=== PATIENT | female | born 1990 | race Caucasian/White ===

== ENCOUNTER 2017-05-28 14:28 | Emergency (ER) | payer MEDICAID ==
[2017-05-28 14:57] VITALS: BP 125/77; PULSE 97; RESP 18; TEMP 97.8; O2SAT 99
--- NOTE | 2017-05-28 16:11 | C.PDOC ---
History Of Present Illness 27 y/o F p/w R sided lower back pain radiating down R leg x 1 week. Denies injury, fever, urinary or bowel changes, numbness, or weakness. Has not taken any medication for pain. Time Seen by Provider: 05/28/17 15:41 Chief Complaint (Nursing): Back Pain Past Medical History Vital Signs: Last Vital Signs Temp 97.8 F 05/28/17 14:55 Pulse 97 H 05/28/17 14:55 Resp 18 05/28/17 14:55 BP 125/77 05/28/17 14:55 Pulse Ox 99 05/28/17 18:22 - Medical History PMH: Hypothyroidism Surgical History: Tonsillectomy Family History: States: No Known Family Hx - Social History Hx Alcohol Use: No Hx Substance Use: No - Immunization History Hx Tetanus Toxoid Vaccination: No Hx Influenza Vaccination: No Hx Pneumococcal Vaccination: No Review Of Systems Except As Marked, All Systems Reviewed And Found Negative. Constitutional: Negative for: Fever Respiratory: Negative for: Shortness of Breath Physical Exam - Physical Exam Appears: No Acute Distress Skin: Normal Color Head: Normacephalic Neck: No Midline Cervical Tenderness, Supple Cardiovascular: Rhythm Regular Respiratory: Normal Breath Sounds Gastrointestinal/Abdominal: Soft, No Tenderness Back: No Vertebral Tenderness, Straight Leg Raising (R) Extremity: No Tenderness, No Swelling Pulses: Left Radial: Normal, Right Radial: Normal Neurological/Psych: Normal Speech, Normal Cognition Gait: Steady ED Course And Treatment O2 Sat by Pulse Oximetry: 99 Medical Decision Making Medical Decision Making: Symptoms and examination consistent with sciatica. Treat conservatively, instructed to f/u with PMD, instructed to obtain imaging for pain persisting beyond 3 weeks. Instructed to return to ED for worsening pain, fever, numbness, weakness, urinary or bowel changes. Disposition - Disposition Referrals: Shaik Garcia MD [Staff Provider] - Disposition: HOME/ ROUTINE Disposition Time: 16:11 Condition: STABLE Prescriptions: Cyclobenzaprine [Cyclobenzaprine HCl] 1 tab PO Q8H #12 tab Instructions: Sciatica (ED) Forms: [employer] (Frisian) - Clinical Impression Clinical Impression: Low back pain
== END 2017-05-28 16:23 | disposition home or self-care (01) ==
LOC: C.ER 14:28
DX: M54.5 Low back pain (principal); E03.9 Hypothyroidism, unspecified
CPT/HCPCS: 96372; 99284; J1885

== ENCOUNTER 2018-05-02 19:00 | Inpatient (IN) | payer OTHER ==
[2018-05-02 19:57] VITALS: BMI 46.5
[2018-05-02 20:53] LABS: BASO % 0.2 % (0.0-2.0); EOS # 0.1 K/uL (0.0-0.7); EOS % 0.4 % (0.0-4.0); HEMOGLOBIN 11.4 g/dL (11.0-16.0); LYMPH # 1.3 K/uL (1.0-4.3); LYMPH % 11.6 % (20.0-40.0); MEAN CORPUSCULAR HEMOGLOBIN 30.1 pg (27.0-31.0); MEAN CORPUSCULAR HGB CONC 34.2 g/dL (33.0-37.0); MEAN PLATELET VOLUME 10.2 fL (7.2-11.7); MONO # 0.6 K/uL (0.0-0.8); MONO % 5.4 % (0.0-10.0); NEUT # 9.3 K/uL (1.8-7.0); NEUT % 82.4 % (50.0-75.0); RBC 3.79 Mil/uL (3.80-5.20); RED CELL DISTRIBUTION WIDTH 13.8 % (11.5-14.5); WHITE BLOOD COUNT 11.3 K/uL (4.8-10.8)
[2018-05-02 21:07] LABS: ALB/GLOB RATIO 1.1 (1.0-2.1); ALBUMIN 3.2 g/dL (3.5-5.0); ALT/SGPT 24 U/L (9-52); AST/SGOT 26 U/L (14-36); BLOOD UREA NITROGEN 11 mg/dL (7-17); CALCIUM 8.9 mg/dl (8.6-10.4); GFR NON-AFRICAN AMERICAN > 60; URIC ACID 5.3 mg/dL (2.2-7.5)
[2018-05-02 21:09] LABS: SQUAMOUS EPITHIAL 2 /hpf (0-5); URINE BILIRUBIN NEGATIVE (NEGATIVE); URINE BLOOD 2+ (NEGATIVE); URINE CLARITY Clear (Clear); URINE COLOR Yellow (YELLOW); URINE GLUCOSE (UA) NORMAL (Normal); URINE LEUKOCYTE ESTERASE 1+ Leu/uL (Negative); URINE PROTEIN NEGATIVE (NEGATIVE); URINE UROBILINOGEN NORMAL mg/dL (0.2-1.0)
[2018-05-02 21:13] LABS: INR 0.9; PROTHROMBIN TIME 10.2 SECONDS (9.7-12.2)
[2018-05-02] MEDS: Lactated Ringer's 1,000 ML IV SCH (22:53)
--- NOTE | 2018-05-02 23:51 | OBHP ---
Datetime: 05/02/2018 20:54 IP Adm Impression: Term, intrauterine ; No Active Labor; Intact Membranes IP Admit Plan: Admit to unit IP Admit Plan Other: Cervical ripening Admit Comment, IP Provider: Thisis a private patient of Dr. Varghese Machado Patient seen and evaluated at 2007 hours 28 y.o. , LMP unsure, JORDYN 05/11/18, EGA 38w 5d confirmed by sono 02/24/18 at 29w 1d, referred by PMD for evauation of elevated BP - R/O pre-eclampsia. Per patient BP in ofice 140/100, repeat 138/ 88. In Ob-ED, BP 130/83, 132/91, 126/80, 137/82, 133/86, 130/85. Patient denies HAs, BV, spots, RUQ or epigastric pain. Also denies nausea/vomiting. (+) AFM; denies LOF, VB; (+) occ B-H Ctx x 1 weeks. care: Dr. 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 Denies h/o STIs, abnormal Pap, myomata PMH: Hypothyroid - age 8. PSH: Tonsillectomy - age 8 NKDA Meds: PNV - QD. Levothyroxine 100 mg po QAM; Vit d - once weekely Soc Hx: denies tobacco, illicit drug or EtOH use. Lives with FOB; together x 2 years. Unemployed Fam Hx: Mother alive 57 y.o. no med issues. Father when patient young child - end stage r enal disease. No known fam H/Ocancer P.E.: as above. Mildly obese in NAD. Awake, alert, oriented to time, person and place. Pleasant an d cooperative. Accompanied by FOB Assessment: 28 y.o. P0, 38w 5d, elevated BP and hypothyroid. R/O pre-eclampsia. Category 1 tracin g. Clinically stable. Plan: 1) Pre-eclampsia labs 2) serial BPs 3) Observe - as per, and D/W, Dr. Machado Addendum: [address] Machado: cerivx 2cm dilated. In light of cervical change and uterine contra citons, decision made to admit for delivery. BP range 130s/80s Assessment; 28 y.o. P0, 38w 5d, gestational HTN, hypothyroid making cervical change. Admit for del poli; cervical ripening. Category 1 tracing. Clinically stable. Plan: 1) Admit 2) NPO 3) Complete admission labs. 4) Cervidil 5) Antiicpate vaginal delivery- as per Dr. Machado Addenedum: 2220 hours - cervidil placed in postrior vaginal vault by me: cervix 2 cm/50%/-3. Patient reports back pain, left-sided body pain; Denes abdominal pain/Ctx. (+) AFM; denies HAs, BV , epigastric or RUQ pain Pelvic Type - PN: Adequate Extremities - PN: Normal Abdomen - PN: Normal Back - PN: Normal Breast - PN: Not Done Lungs - PN: Normal Heart - PN: Normal Thyroid - PN: Not Done HEENT - PN: Normal General - PN: Normal Presentation-Admit: Vertex FHR - Baseline A Provider: 140 Contraction Comments Provider: irritability Comments, ACOG Physical Exam: Skin: (+) vitiligo on mons/ perineum Abdomen: Obese. Gravid. Soft. Non tender in all quadrants. Fundal height 38cm Extremities: no calf tenderness; 1+ pedal edema bilaterally All other systems reviewed and are negative Gestation - Est Wks by US: 38w 5d EGA AdmitDate IP: 38.5 Vital Signs Provider: Reviewed IP Indication for Induction: Gest. HTN/PreEclampsia/Eclampsia IP Chief Complaint: Signs/Symptoms Gestational HTN NICHD Variability Prov Fetus A: Moderate 6-25bpm NICHD Accel Fetus A IP Provider: 15X15 FHR Category Provider Fetus A: Category I NICHD Decel Fetus A IP Provider: None Dilatation, Provider: FT Effacement, Provider: long Station, Provider: -3 DTRs - PN: Normal
--- NOTE | 2018-05-03 07:29 | OBADHP ---
Datetime: 05/03/2018 07:26 FHR - Baseline A Provider: 130 Contraction Comments Provider: irrg Vital Signs Provider: Reviewed; Within Normal Limits NICHD Variability Prov Fetus A: Moderate 6-25bpm NICHD Accel Fetus A IP Provider: 15X15 FHR Category Provider Fetus A: Category I Dilatation, Provider: 3 Effacement, Provider: 70 Station, Provider: -2 Datetime: 05/02/2018 20:54 IP Hx Assessment: The History has been Reviewed and is Current EGA AdmitDate IP: 38.5
--- NOTE | 2018-05-03 07:31 | OBPN ---
Datetime: 05/03/2018 07:26 IP Progress Impression: Normal progression of labor IP Procedures: Artificial ROM; Sterile Vag Exam Contraction Comments Provider: irrg FHR - Baseline A Provider: 130 IP Progress Note Comment: pt was examined at bed side ve /-2 arom clear start pitocin anticipate nsbvd Vital Signs Provider: Reviewed; Within Normal Limits NICHD Accel Fetus A IP Provider: 15X15 FHR Category Provider Fetus A: Category I NICHD Variability Prov Fetus A: Moderate 6-25bpm Dilatation, Provider: 3 Effacement, Provider: 70 Station, Provider: -2 Datetime: 05/02/2018 20:54 Gestation - Est Wks by US: 38w 5d Presentation-Admit: Vertex NICHD Decel Fetus A IP Provider: None
[2018-05-03] MEDS ORDERED: Oxytocin 30 UNIT 30 UNITS/500 ML BAG IV ONE ×2 (07:35→07:40)
[2018-05-03] MEDS: Lactated Ringer's 1,000 ML IV SCH ×2 (10:01→21:04)
[2018-05-03] MEDS ORDERED: Bupivacaine HCl/FentaNYL Cit 100 ML EPI ONE (12:49)
--- NOTE | 2018-05-03 14:12 | OBPN ---
Datetime: 05/03/2018 14:08 IP Progress Impression: Normal progression of labor IP Procedures: Sterile Vag Exam IP Progress Plan: Continue present management FHR - Baseline A Provider: 130 IP Progress Note Comment: pt was examined at bed side ve 80/-1 cont pitocin' [id number] Vital Signs Provider: Reviewed; Within Normal Limits NICHD Accel Fetus A IP Provider: 15X15 FHR Category Provider Fetus A: Category I NICHD Variability Prov Fetus A: Moderate 6-25bpm Dilatation, Provider: 4 Effacement, Provider: 80 Station, Provider: -1
--- NOTE | 2018-05-03 15:35 | OBPN ---
Datetime: 05/03/2018 15:32 IP Progress Impression: Normal progression of labor IP Procedures: Sterile Vag Exam Contraction Comments Provider: q1- FHR - Baseline A Provider: 130 IP Progress Note Comment: pt was exained at bed side ve 6/100/-1 cont p[itocin aticiupate Vital Signs Provider: Reviewed; Within Normal Limits NICHD Accel Fetus A IP Provider: 15X15 FHR Category Provider Fetus A: Category I NICHD Variability Prov Fetus A: Moderate 6-25bpm Dilatation, Provider: 6 Effacement, Provider: 100 Station, Provider: -1
[2018-05-03] MEDS ORDERED: Sodium Citrate/Citric Acid 15 ml Sol ONE (17:23)
[2018-05-03] MEDS ORDERED: cefOXitin IV 2 gm in Saline 2 GM/50 ML BAG IVPB ONE (17:24)
[2018-05-03] MEDS ORDERED: cefOXitin IV 2 gm in Dextrose 2 GM/50 ML BAG IVPB ONE (17:25)
[2018-05-03] MEDS ORDERED: Sodium Citrate/Citric Acid 15 ml Sol PO ONE (17:25)
[2018-05-03] MEDS ORDERED: Oxytocin 10 Units/ml Inj ONE ×2 (17:25→17:50)
[2018-05-03] MEDS ORDERED: Lactated Ringer's 1,000 ML IV ONE (17:25)
--- NOTE | 2018-05-03 17:25 | OBPN ---
Datetime: 05/03/2018 17:21 IP Informed Consent Obtain: Section Delivery; Risks, Benefits and Alternatives Discussed IP Procedures: Sterile Vag Exam Contraction Comments Provider: q1-4 FHR - Baseline A Provider: 130 IP Progress Note Comment: pt was examinred at [facility] ve /-1, unchnged mod amt of blod plan primary c/s called stat informed consent r/a/ pt unde and agrees NICHD Variability Prov Fetus A: Moderate 6-25bpm Dilatation, Provider: 6 Effacement, Provider: 100 Station, Provider: -1
[2018-05-03] MEDS ORDERED: Oxytocin 20 units in LR 2,000 ML IV ONE (17:27)
[2018-05-03] MEDS ORDERED: Sodium Bicarbonate (8.4%) 50 Meq Syringe ONE (17:27)
[2018-05-03] MEDS ORDERED: Propofol 10 mg/ml Inj (20 ML) ONE (17:31)
[2018-05-03] MEDS ORDERED: Ketamine 50 mg/ml Inj (10 ml) ONE (17:31)
[2018-05-03] MEDS ORDERED: Morphine 1 mg/ml preservative-free Inj(Duramorph) ONE (17:53)
--- NOTE | 2018-05-03 18:12 | OBDS ---
DELIVERY PERSONNEL Delivery Doctor: Varghese Machado MD Passenger Barge Master: Kelvin Del Angel RN Anesthesiologist: jarret MATERNAL INFORMATION Delivery Anesthesia: Spinal Medications in Delivery: pitocin 40 Maternal Complications: Other Other Maternal Complications: vaginal bleeding Provider Comments: dr machado privare baby eloivrd n dop postion. placente seorated. 9/9 no com LABOR SUMMARY EDC: 05/11/2018 00:00 No. Babies in Womb: 1 LABOR INFORMATION Cervical Ripening Agents: Cervidil in place. Group B Beta Strep: negative as per Dr. Machado MEMBRANES Membranes Rupture Method: Artificial Rupture of Membranes: 05/03/2018 07:21 Length of Rupture (hrs): 10.40 Amniotic Fluid Color: Clear Amniotic Fluid Amount: Moderate Amniotic Fluid Odor: Normal STAGES OF LABOR Stage 3 hrs: 0 Stage 3 min: 1 BABY A INFORMATION Infant Delivery Date/Time: 05/03/2018 17:45 Method of Delivery: Born in Route : No : N/A Forceps: N/A Vacuum Extraction: N/A Shoulder Dystocia : No SHOULDER DYSTOCIA BABY A Infant Delivery Date/Time: 05/03/2018 17:45 PRESENTATION/POSITION BABY A Presentation: Cephalic Cephalic Presentation: Vertex Breech Presentation: N/A PLACENTA INFORMATION BABY A Placenta Delivery Time : 05/03/2018 17:46 Placenta Method of Delivery: Expressed Placenta Status: Retained SCORES BABY A Heart Rate 1 min: >100 bpm Resp Effort 1 min: Good Cry Reflex Irritability 1 min: Cough or Sneeze or Pulls Away Muscle Tone 1 min: Active Motion Color 1 min: Body Champ, Extremities Blue Resuscitation Effort 1 min: Tactile Stimulation SCORE 1 MIN: 9 Heart Rate 5 min: >100 bpm Resp Effort 5 min: Good Cry Reflex Irritability 5 min: Cough or Sneeze or Pulls Away Muscle Tone 5 min: Active Motion Color 5 min: Body Champ, Extremities Blue SCORE 5 MIN: 9 INFANT INFORMATION BABY A Gestational Age at Delivery: 38.6 Gestational Status: Term Infant Outcome : Liveborn Infant Condition : Stable Infant Sex: Female IDENTIFICATION/MEDS BABY A ID Band Number: [id number] ID Band Location: Left Leg; Left Arm Sensor Applied: Yes Sensor Number: [id number] Sensor Location : Cord Clamp WEIGHT/LENGTH BABY A Infant Birthweight (gms): 2960 Weight (lb): 6 Weight (oz): 8 Length Inches: 19.00 Length cms: 48.3 CORD INFORMATION BABY A No. Cord Vessels: 3 Nuchal Cord : N/A Cord Blood Taken: Yes Suction: Mouth; Nose ASSESSMENT BABY A Infant Complications: None Physical Findings at Delivery: Within Normal Limits Respirations: Appears Normal Clay Modeler/ALS Called : No Care By: dr ellis Transferred To: Remains with Mother
[2018-05-03] MEDS ORDERED: Oxycodone/Acetaminophen 5/325 mg Tab PO PRN (18:13)
[2018-05-03] MEDS: Simethicone 80 mg Chewtab PO SCH (23:43)
--- NOTE | 2018-05-04 06:06 | OBPPN ---
Datetime: 05/04/2018 06:04 PP Pain Prov: Within normal limits PP Nausea Prov: Denies PP Flatus Prov: No PP Comments Phys Exam Prov: and fudus below umblicus ext mild edema PP Impression Prov: Normal progression PP Plan Prov: Continue present management PP Progress Note Prov: pt was seen at bed side, pain under control,no n/v, waiting to void, nmin loc hia pod#1 s/p c/s dc ruiz liquid deit encourage ambu 'cbc cot post op care Vital Signs Provider PP: Reviewed
[2018-05-04 09:24] LABS: HEMOGLOBIN 10.2 g/dL (11.0-16.0); MEAN CORPUSCULAR HEMOGLOBIN 29.8 pg (27.0-31.0); MEAN CORPUSCULAR HGB CONC 33.1 g/dL (33.0-37.0); MEAN PLATELET VOLUME 10.4 fL (7.2-11.7); RBC 3.42 Mil/uL (3.80-5.20); WHITE BLOOD COUNT 13.7 K/uL (4.8-10.8)
[2018-05-04 09:28] LABS: MEAN CELL VOLUME 90.1 fL (81.0-99.0)
[2018-05-04] MEDS: Simethicone 80 mg Chewtab PO SCH ×4 (10:05→22:11)
[2018-05-04] MEDS: Prenatal Multivit/Folic Acid/Iron Tab PO SCH (10:05)
[2018-05-04] MEDS: Oxycodone/Acetaminophen 5/325 mg Tab PO PRN (17:33)
[2018-05-04] MEDS ORDERED: Bisacodyl 5mg EC Tab PO ONE (18:13)
[2018-05-05 08:06] VITALS: BP 117/73; PULSE 83; RESP 20; TEMP 98.4; O2SAT 97
--- NOTE | 2018-05-05 08:54 | OP ---
PROCEDURE DATE: 05/03/2018 PREOPERATIVE DIAGNOSIS: A 28-year-old 1, para 0 with gestational hypertension, vaginal bleeding, rule out . POSTOPERATIVE DIAGNOSIS: A 28-year-old 1, para 0 with gestational hypertension, vaginal bleeding, rule out . SURGEON: Varghese Machado MD PEANUT FARMER: Alexis Berry MD ANESTHESIA: Epidural. ANESTHESIOLOGIST: Dr. Hebert. COMPLICATIONS: None. ESTIMATED BLOOD LOSS: 800 mL. PROCEDURE: . DESCRIPTION OF PROCEDURE: After informed consent was obtained, the patient was brought to the operating room, placed on the table where spinal anesthesia was given. When anesthesia was found to be sufficient, she was prepped and draped in normal sterile fashion. Once the anesthesia was found to be adequate, the patient was prepped and draped in the normal sterile fashion. About 2 cm above the pubic bone, a skin incision was made with a knife. Subcutaneous tissue was cut with a knife. The fascia was excised on both the sides using curved Lobato scissors. The fascia was from site of umbilicus and then at the site of the rectum muscles. The peritoneum was lifted up with 2 Allis scissors which was cut and then we continued with abdominal cavity. Bladder blade was created. Baby was delivered in position. Cord was clamped and cut. Baby was handed to the awaiting felt strip finisher. Cord gas was taken. Placenta delivered manually and sent to Pathology. The uterus was exteriorized and cleared of all clots and debris. The uterine incision was closed using #1 Vicryl in running interlocking fashion. Second layer was closed with the same stitch. After that, the cul-de-sac were cleared of all the clots and debris. Uterus was returned back to the abdominal cavity. Gutters were cleared of all the clots. After that, the peritoneum was closed using 2-0 Vicryl in running interlocking fashion. Fascia was closed using #1 Vicryl in running interlocking fashion. Subcutaneous tissue was closed with 0 Vicryl in interrupted fashion. Skin was closed using 3-0 Monocryl straight needle. Patient tolerated the procedure well. Lap, sponge, and instrument counts were correct x2. Varghese Machado MD
[2018-05-05] MEDS: Prenatal Multivit/Folic Acid/Iron Tab PO SCH (10:50)
[2018-05-05] MEDS: Oxycodone/Acetaminophen 5/325 mg Tab PO PRN (10:50)
[2018-05-05] MEDS: Simethicone 80 mg Chewtab PO SCH (10:50)
[2018-05-05] MEDS ORDERED: Measles, Mumps, and Rubella 0.5 ML VIAL SC ONE (11:18)
== END 2018-05-05 16:00 | disposition home or self-care (01) | DRG 788 ==
LOC: C.EROB 19:00 → C.4D 21:30 → C.4M 05-03 21:32
PROVIDERS: ADMIT Obstetrics & Gynecology; ATTEND Obstetrics & Gynecology
PROC: 3E0P7VZ Introduction of Hormone into Female Reproductive, Via Natural or Artificial Opening (ICD-10-PCS; 2018-05-02)
PROC: 10907ZC Drainage of Amniotic Fluid, Therapeutic from Products of Conception, Via Natural or Artificial Opening (ICD-10-PCS; principal; 2018-05-03)
PROC: 10D00Z1 Extraction of Products of Conception, Low, Open Approach (ICD-10-PCS; 2018-05-03)
DX: O13.4 Gestational [pregnancy-induced] hypertension without significant proteinuria, complicating childbirth (principal); O99.284 Endocrine, nutritional and metabolic diseases complicating childbirth; E03.9 Hypothyroidism, unspecified; Z37.0 Single live birth; Z3A.38 38 weeks gestation of pregnancy; O67.9 Intrapartum hemorrhage, unspecified

== ENCOUNTER 2018-05-14 16:22 | Emergency (ER) | payer OTHER ==
[2018-05-14 16:30] VITALS: BMI 32.8
[2018-05-14 16:46] VITALS: BP 117/60; PULSE 90; RESP 18; TEMP 97.2; O2SAT 97
--- NOTE | 2018-05-14 17:11 | C.PDOC ---
History Of Present Illness 28 year old female presents to ED complaining of a non-traumatic left wrist pain for 1 month. Patient states she has tried to take tylenol and motrin but with no relief. Patient had delivered a healthy child on 05/03/18. Time Seen by Provider: 05/14/18 16:44 Chief Complaint (Nursing): Finger,Hand,&Wrist History Per: Patient History/Exam Limitations: no limitations Onset/Duration Of Symptoms: Days Current Symptoms Are (Timing): Still Present Past Medical History Reviewed: Historical Data, Nursing Documentation, Vital Signs Vital Signs: Last Vital Signs Temp 97.2 F L 05/14/18 16:29 Pulse 90 05/14/18 16:29 Resp 18 05/14/18 16:29 BP 117/60 05/14/18 16:29 Pulse Ox 97 05/14/18 16:29 - Medical History PMH: Hypothyroidism Denies: Depression, Diabetes, HTN Surgical History: Tonsillectomy - [facility] (05/02/18) DRAINAGE OF AMNIOTIC FL, THERAP FROM POC, VIA OPENING (05/02/18) EXTRACTION OF POC, LOW CERVICAL, OPEN APPROACH (05/02/18) Family History: States: No Known Family Hx - Social History Hx Alcohol Use: No Hx Substance Use: No - Immunization History Hx Tetanus Toxoid Vaccination: No Hx Influenza Vaccination: No Hx Pneumococcal Vaccination: No Review Of Systems Except As Marked, All Systems Reviewed And Found Negative. Musculoskeletal: Positive for: Other (Left wrist pain) Physical Exam - Physical Exam Appears: Non-toxic, No Acute Distress Skin: Warm, Dry, No Rash Head: Atraumatic, Normacephalic Eye(s): bilateral: Normal Inspection Oral Mucosa: Moist Neck: Supple Chest: Symmetrical Cardiovascular: Rhythm Regular, No Murmur Respiratory: Normal Breath Sounds Extremity: Capillary Refill (less than 2 seconds), No Deformity, No Swelling, Other (left ulnar and radius pain to palpation, no swelling, no erythema) Extremity: Bilateral: Normal Color And Temperature, Normal ROM Neurological/Psych: Oriented x3, Normal Speech, Normal Motor, Normal Sensation, Normal Reflexes ED Course And Treatment O2 Sat by Pulse Oximetry: 97 (RA) Pulse Ox Interpretation: Normal - Other Rad Left wrist x-ray X-Ray: Read By Radiologist Interpretation: Findings: No evidence of acute displaced fracture or dislocation. On the oblique view, a vertically oriented lucency through the distal radius at its radial aspect is likely artifact with overlapping soft tissues. This does not persist on additional sequences. Impression: Negative acute. If pain persists, consider MRI. Medical Decision Making Medical Decision Making: Plan: --Left wrist x-ray XR showed no fracture or dislocations. 17:15 Patient was offered pain medications which she refused stating they do not work. Patient placed in cockup splint and instructed patient to follow up with an orthopedist in 3-5 days. Disposition Counseled Patient/Family Regarding: Studies Performed, Diagnosis, Need For Followup - Disposition Referrals: Dustin Dale III, MD [Staff Provider] - Disposition: HOME/ ROUTINE Disposition Time: 17:10 Condition: STABLE Additional Instructions: FOLLOW UP WITH DR. DALE NEXT WEEK FOR RE-EVALUATION AND OFFICIAL XRAY REPORT. IF SYMPTOMS GET WORSE OR ANY NEW CONCERNING SYMPTOMS DEVELOP RETURN TO ED. Instructions: Wrist Sprain (DC) Forms: [facility] (Syriac), General Discharge Instructions - Clinical Impression Clinical Impression: Wrist sprain - PA / RESEARCH EXECUTIVE / Resident Statement MD/DO has reviewed & agrees with the documentation as recorded. - Scribe Statement The provider has reviewed the documentation as recorded by the Scribe Kathy Milligan All medical record entries made by the Raeibanita were at my direction and personally dictated by me. I have reviewed the chart and agree that the record accurately reflects my personal performance of the history, physical exam, medical decision making, and the department course for this patient. I have also personally directed, reviewed, and agree with the discharge instructions and disposition.
--- NOTE | 2018-05-14 18:01 | RAD ---
Left wrist four views HISTORY: Pain. COMPARISON: None available. Findings: No evidence of acute displaced fracture or dislocation. On the oblique view, a vertically oriented lucency through the distal radius at its radial aspect is likely artifact with overlapping soft tissues. This does not persist on additional sequences. Impression: Negative acute. If pain persists, consider MRI.
== END 2018-05-14 17:26 | disposition home or self-care (01) ==
LOC: C.ER 16:22
DX: S63.502A Unspecified sprain of left wrist, initial encounter (principal); X58.XXXA Exposure to other specified factors, initial encounter; Y92.9 Unspecified place or not applicable

== ENCOUNTER 2018-10-27 10:37 | Emergency (ER) | payer OTHER ==
[2018-10-27 10:37] VITALS: BMI 32.8
[2018-10-27 10:49] VITALS: RESP 18
--- NOTE | 2018-10-27 11:03 | C.PDOC ---
History Of Present Illness 28 y/o female presents to ED complaining of pain to her left pinky toe after hitting it against a cart. Rates the pain 7/10 when putting weight on it. She denies any weakness, numbness, or tingling. Denies fall or any other injuries. Time Seen by Provider: 10/27/18 10:55 Chief Complaint (Nursing): Lower Extremity Problem/Injury History Per: Patient History/Exam Limitations: no limitations Onset/Duration Of Symptoms: Hrs Current Symptoms Are (Timing): Still Present Past Medical History Reviewed: Historical Data, Nursing Documentation, Vital Signs Vital Signs: Last Vital Signs Temp 98.4 F 10/27/18 10:47 Pulse 63 10/27/18 10:47 Resp 18 10/27/18 10:47 BP 129/83 10/27/18 10:47 Pulse Ox 100 10/27/18 10:47 Primary Care Provider: Shaik Garcia - Medical History PMH: Hypothyroidism Denies: Depression, Diabetes, HTN Surgical History: Tonsillectomy - [facility] (05/02/18) DRAINAGE OF AMNIOTIC FL, THERAP FROM POC, VIA OPENING (05/02/18) EXTRACTION OF POC, LOW CERVICAL, OPEN APPROACH (05/02/18) Family History: States: No Known Family Hx - Social History Hx Alcohol Use: No Hx Substance Use: No - Immunization History Hx Tetanus Toxoid Vaccination: No Hx Influenza Vaccination: No Hx Pneumococcal Vaccination: No Review Of Systems Constitutional: Negative for: Fever, Chills Musculoskeletal: Positive for: Foot Pain, Other (Left pinky toe pain). Negative for: Leg Pain Skin: Positive for: Bruising Neurological: Negative for: Weakness, Numbness, Headache, Dizziness Physical Exam - Physical Exam Appears: Non-toxic, No Acute Distress Skin: Warm, Dry Head: Atraumatic, Normacephalic Eye(s): bilateral: Normal Inspection Cardiovascular: Rhythm Regular Respiratory: Normal Breath Sounds, No Wheezing Gastrointestinal/Abdominal: Soft, No Tenderness Extremity: Tenderness (tenderness to palpation of left 5th toe, slight ecchymosis), No Pedal Edema, No Calf Tenderness, Capillary Refill (less than 2 seconds), Deformity (mild), Swelling (mild) Neurological/Psych: Oriented x3, Normal Speech, Normal Cognition, Normal Motor, Normal Sensation Gait: Other (limping) ED Course And Treatment O2 Sat by Pulse Oximetry: 100 (RA) Pulse Ox Interpretation: Normal - Other Rad Foot XR X-Ray: Read By Radiologist Interpretation: FINDINGS: There is a bony density or fragment at the medial proximal aspect of the 5th distal phalanx. Possible acute fracture. Technically limited examination. Correlate clinically. No other fracture identified. The remainder of the visualized left foot is unremarkable. IMPRESSION: Questionable acute fracture base of 5th distal phalanx. Correlate clinically. Medical Decision Making Medical Decision Making: Plan: --Left Foot XR ordered and reviewed- acute fracture noted 12:20 Spoke with podiatry resident, recommended juli splint to 4th toe and surgical shoe in light of fracture. Patient to follow up with podiatry clinic. Discharged with Motrin as needed for pain. Disposition Counseled Patient/Family Regarding: Studies Performed, Diagnosis, Need For Followup, Rx Given - Disposition Referrals: Podiatry Clinic [Outside] Orthopedic Clinic at [place] [Outside] Disposition: HOME/ ROUTINE Disposition Time: 12:53 Condition: IMPROVED Additional Instructions: Continue Motrin as needed for pain Rest, Ice, Compression, and Elevation Follow up in Podiatry clinic on November 14 at [facility] or M,W, F in [place] Return to ED if symptoms worsen Prescriptions: Ibuprofen [Motrin] 600 mg PO Q8 PRN #30 tab PRN Reason: Pain, Moderate (4-7) Instructions: Toe Fracture (DC) Forms: [facility] (Macedonian) - Clinical Impression Clinical Impression: Pain of fifth toe, Toe fracture, left - PA / GENERAL ACCOUNTING CLERK / Resident Statement MD/DO has reviewed & agrees with the documentation as recorded. - Scribe Statement The provider has reviewed the documentation as recorded by the Scribanita Milligan All medical record entries made by the Mary were at my direction and personally dictated by me. I have reviewed the chart and agree that the record accurately reflects my personal performance of the history, physical exam, medical decision making, and the department course for this patient. I have also personally directed, reviewed, and agree with the discharge instructions and disposition.
--- NOTE | 2018-10-27 12:10 | RAD ---
Date of service: 10/27/2018 PROCEDURE: X-ray left 5th toe HISTORY: s/p trauma COMPARISON: Not available TECHNIQUE: Three views FINDINGS: There is a bony density or fragment at the medial proximal aspect of the 5th distal phalanx. Possible acute fracture. Technically limited examination. Correlate clinically. No other fracture identified. The remainder of the visualized left foot is unremarkable. IMPRESSION: Questionable acute fracture base of 5th distal phalanx. Correlate clinically.
[2018-10-27 12:28] VITALS: BP 119/77; PULSE 73; TEMP 98.5
[2018-10-27 12:29] VITALS: O2SAT 100
== END 2018-10-27 12:57 | disposition home or self-care (01) ==
LOC: C.ER 10:37
DX: S92.502A Displaced unspecified fracture of left lesser toe(s), initial encounter for closed fracture (principal); W22.8XXA Striking against or struck by other objects, initial encounter